=== PATIENT | male | born 1980 | race Caucasian/White ===

== ENCOUNTER 2018-06-14 03:11 | Emergency (ER) | payer SELFPAY ==
[2018-06-14 03:11] VITALS: BMI 31.6
[2018-06-14 03:18] VITALS: BP 153/95; PULSE 93; RESP 22; TEMP 98.2; O2SAT 98
--- NOTE | 2018-06-14 03:33 | C.PDOC ---
History Of Present Illness 55 y/o male presents to ED complaining of itchiness on dorsum of his left hand. Patient states that he burned his hand in hot oil one week ago, and now it is itching. Patient has no other physical complaints. Time Seen by Provider: 06/14/18 03:14 Chief Complaint (Nursing): Upper Extremity Problem/Injury History Per: Patient History/Exam Limitations: no limitations Onset/Duration Of Symptoms: Days Current Symptoms Are (Timing): Still Present Severity: Mild Past Medical History Reviewed: Historical Data, Nursing Documentation, Vital Signs Vital Signs: Last Vital Signs Temp 98.2 F 06/14/18 03:14 Pulse 93 H 06/14/18 03:14 Resp 22 06/14/18 03:14 BP 153/95 H 06/14/18 03:14 Pulse Ox 98 06/14/18 03:14 - Medical History PMH: No Chronic Diseases Family History: States: No Known Family Hx - Social History Hx Alcohol Use: Yes Hx Substance Use: No - Immunization History Hx Tetanus Toxoid Vaccination: Yes Hx Influenza Vaccination: Yes Hx Pneumococcal Vaccination: No Review Of Systems Constitutional: Negative for: Fever, Chills Skin: Positive for: Other (Itchiness on dorsum of L hand). Negative for: Rash Neurological: Negative for: Weakness, Numbness Physical Exam - Physical Exam Appears: Well, Non-toxic, No Acute Distress Skin: Normal Color, Warm, Dry Head: Normacephalic Eye(s): bilateral: Normal Inspection Oral Mucosa: Moist Neck: Supple Cardiovascular: Rhythm Regular Respiratory: Normal Breath Sounds, No Rales, No Rhonchi, No Wheezing Extremity: Normal ROM, No Tenderness, Capillary Refill (< 2 sec all digits ), No Deformity, No Swelling, Other (Dorsum of L hand has well healing burn that is approx 4cm in diameter, no erythema or discharge) Extremity: Bilateral: Normal ROM Pulses: Left Radial: Normal, Right Radial: Normal Neurological/Psych: Oriented x3, Normal Sensation ED Course And Treatment O2 Sat by Pulse Oximetry: 98 (RA) Pulse Ox Interpretation: Normal Progress Note: Explained to patient that wound is itchy because it is healing. Rx for benadryl cream given. Patient instructed to follow up with PMD/clinic in 1-2 days, and he understands he should return to ED if symptoms worsen. Disposition Counseled Patient/Family Regarding: Diagnosis, Need For Followup - Disposition Referrals: [facility] [Outside] Disposition: HOME/ ROUTINE Disposition Time: 03:30 Condition: STABLE Prescriptions: Diphenhydramine HCl/Zinc Acet [Benadryl Itch Stopping Crm] 1 appl TP PRN PRN #1 cream..g. PRN Reason: Itching / Pruritus Instructions: Itchy Skin Forms: [facility] ([employer]), General Discharge Instructions Print Language: LITHUANIAN - Clinical Impression Clinical Impression: Burn of hand, Itching - Scribe Statement The provider has reviewed the documentation as recorded by the [facility] Faith Provider Attestation: All medical record entries made by the Hazel were at my direction and personally dictated by me. I have reviewed the chart and agree that the record accurately reflects my personal performance of the history, physical exam, medical decision making, and the department course for this patient. I have also personally directed, reviewed, and agree with the discharge instructions and disposition.
== END 2018-06-14 03:42 | disposition home or self-care (01) ==
LOC: C.ER 03:11
DX: T23.062A Burn of unspecified degree of back of left hand, initial encounter (principal); X10.2XXA Contact with fats and cooking oils, initial encounter; Y92.89 Other specified places as the place of occurrence of the external cause; Y99.0 Civilian activity done for income or pay; L29.9 Pruritus, unspecified